=== PATIENT | male | born 1990 | race Asian ===

== ENCOUNTER 2018-02-01 22:03 | Emergency (ER) | payer MEDICAID ==
[~2018-02-01] VITALS: Ht 177.8 cm; Wt 83.7 kg
[2018-02-01 22:26] VITALS: BP 134/73; Ht 177.8 cm; Wt 83.7 kg
== END 2018-02-02 00:20 | disposition home or self-care (01) ==
LOC: ED 22:03
DX: L02.412 Cutaneous abscess of left axilla (principal)
CPT/HCPCS: J2001